=== PATIENT | male | born 1965 | race Caucasian/White ===

== ENCOUNTER 2017-01-16 18:16 | Emergency (ER) | payer BC ==
[2017-01-16 18:22] VITALS: BP 136/90
--- NOTE | 2017-01-16 19:32 | ER Document Report ---
ED General <PAM KEYES - Last Filed: 01/16/17 20:29> - General TRAVEL OUTSIDE OF THE [place] IN LAST 30 DAYS: No <REINA RIZZO - Last Filed: 01/16/17 21:48> - General Chief Complaint: Laceration Stated Complaint: TOE LACERATION Time Seen by Provider: 01/16/17 18:58 - HPI Notes: Patient is a 51-year-old male comes to the ED complaining of a toe laceration that occurred this evening. Patient states that he was stepping [place] old [place] fence and caught a spike between his fourth and fifth digits of his left foot. Patient went to an urgent care initially who sent him to the ED after he had wrapped it. Patient states that he has not been having any pain. Patient denies any loss of range of motion. He has not noticed any numbness or tingling. No other concerns or complaints. Denies any fever, headaches, chest pain, palpitations, shortness of breath, wheeze, cough, abdominal pain, nausea/ vomiting, muscle weakness. (REINA RIZZO) - Related Data Allergies/Adverse Reactions: Penicillins Allergy (Verified 01/16/17 18:22) Past Medical History - Social History Smoking Status: Current Every Day Smoker Chew tobacco use (# tins/day): No Frequency of alcohol use: None Drug Abuse: None Family History: Reviewed & Not Pertinent Patient has suicidal ideation: No Patient has homicidal ideation: No Renal/ Medical History: Denies: Hx Peritoneal Dialysis <REINA RIZZO - Last Filed: 01/16/17 21:48> Review of Systems <PAM KEYES - Last Filed: 01/16/17 20:29> <REINA RIZZO - Last Filed: 01/16/17 21:48> - Review of Systems Notes: REVIEW OF SYSTEMS: CONSTITUTIONAL : Denies fever, chills, or sweats. Denies recent illness. CARDIOVASCULAR: Denies chest pain. Denies palpitations or racing or irregular heart beat. Denies ankle edema. RESPIRATORY: Denies cough, cold, or chest congestion. Denies shortness of breath, difficulty breathing, or wheezing. GASTROINTESTINAL: Denies abdominal pain or distention. Denies nausea, vomiting , or diarrhea. Denies blood in vomitus, stools, or per rectum. Denies black, tarry stools. Denies constipation. GENITOURINARY: Denies difficulty urinating, painful urination, burning, frequency, blood in urine, or discharge. MUSCULOSKELETAL: see HPI SKIN: see HPI NEUROLOGICAL: Denies confusion or altered mental status. Denies passing out or loss of consciousness. Denies dizziness or lightheadedness. Denies headache. Denies weakness or paralysis or loss of use of either side. Denies problems with gait or speech. Denies sensory loss, numbness, or tingling. Denies seizures. PSYCHIATRIC: Denies anxiety or stress. Denies depression, suicidal ideation, or homicidal ideation. ALL OTHER SYSTEMS REVIEWED AND NEGATIVE. Dictation was performed using [employer] voice recognition software (REINA RIZZO) Physical Exam <PAM KEYES - Last Filed: 01/16/17 20:29> <REINA RIZZO - Last Filed: 01/16/17 21:48> - Vital signs Vitals: Temp Pulse Resp BP Pulse Ox 98.1 F 89 20 136/90 H 98 01/16/17 18:21 01/16/17 18:21 01/16/17 18:21 01/16/17 18:21 01/16/17 18:21 Notes: PHYSICAL EXAMINATION: GENERAL: Well-appearing, well-nourished and in no acute distress. HEAD: Atraumatic, normocephalic. NECK: Normal range of motion, supple without lymphadenopathy LUNGS: Breath sounds clear to auscultation bilaterally and equal. No wheezes rales or rhonchi. HEART: Regular rate and rhythm without murmurs, rubs, gallops. Musculoskeletal: Left foot/toes: FROM to passive/active. Strength 5+/5. No ligamentous/tendinous compromise s/p injury. + mild tenderness to palp of the wound. Neurovascularly intact distal. Extremities: No cyanosis, clubbing, or edema b/l. Peripheral pulses 2+. Capillary refill less than 3 seconds. NEUROLOGICAL: Normal sensory, motor exams PSYCH: Normal mood, normal affect. SKIN: + Approx 3 cm irregular and deep laceration noted b/w the 4th and 5th digits. (REINA RIZZO) Course <PAM KEYES - Last Filed: 01/16/17 20:29> <REINA RIZZO - Last Filed: 01/16/17 21:48> - Re-evaluation Re-evalutation: 01/16/17 21:46 Patient is afebrile, well-hydrated, 51-year-old male presents the ED with a toe/ foot laceration, left side. Vitals are stable. PE otherwise unremarkable for any other systemic infection, or any tendon/ligamentous/nerve compromise. Reviewed case with Dr. Keyes who performed internal and superficial sutures successfully without complication. Wound instructions reviewed with patient. I will send him home with doxycycline twice a day for 1 week prophylactic. Tdap given today. Conservative measures for symptoms otherwise. Recheck with us PCM in 2-3 days. Return to the ED with any worsening/concerning symptoms as needed otherwise. Patient is in agreement. Sutures will need removed in 10-14 days. (REINA RIZZO) - Vital Signs Vital signs: Temp Pulse Resp BP Pulse Ox 98.1 F 89 20 136/90 H 98 01/16/17 18:21 01/16/17 18:21 01/16/17 18:21 01/16/17 18:21 01/16/17 18:21 Procedures - Laceration/Wound Repair Left 5th digit Time completed: 20:29 Wound length (cm): 3 Wound's Depth, Shape: Into muscle, Linear Laceration pre-procedure: Sterile PPE donned, Sterile drapes applied, Shur- Clens applied Anesthetic type: 1% Lidocaine Volume Anesthetic (mLs): 5 Wound explored: Clean Wound Debrided: Minimal Wound Repaired With: Sutures Suture Size/Type: 5:0, Prolene Number of Sutures: 6 Layer Closure?: Yes Deep Layer Suture Size/Type: 5:0, Gut Number Deep Layer Sutures: 3 Post-procedure wound care: Sterile dressing applied Post-procedure NV exam normal: Yes Complications: No <PAM KEYES - Last Filed: 01/16/17 20:29> Discharge <PAM KEYES - Last Filed: 01/16/17 20:29> <REINA RIZZO - Last Filed: 01/16/17 21:48> - Discharge Clinical Impression: Toe laceration Qualifiers: Encounter type: initial encounter Toe: unspecified toe Damage to nail status: without damage Foreign body presence: without foreign body Laterality: left Qualified Code(s): S91.119A - Laceration without foreign body of unspecified toe without damage to nail, initial encounter Condition: Stable Disposition: HOME, SELF-CARE Instructions: Antibiotic Ointment Protection ([facility]), Soap Cleansing ([facility]), Tetanus Immunization Given ([facility]), Laceration Care ([facility]), Prophylactic Antibiotic ([facility]) Additional Instructions: Do not shower or bathe for 24 hours. After 24 hours you may shower but no submersion of the wound under water. Keep the original dressing on the wound for 24 hours unless the drainage soaks through. Change the dressing daily thereafter and keep the knots of the suture material clean from any dried discharge. You may leave the wound open to the air once there is no more discharge. Return to the ED and/or your PCM in 2-3 days for a recheck. Monitor for any signs of worsening pain or redness, purulent drainage, streaks, and/or fever. Return to the ED if noticing any of the above symptoms or as needed. Take medications as directed. Your sutures will need to be removed in 10-14 days. Prescriptions: Doxycycline Hyclate 100 mg PO BID #14 capsule Forms: Elevated Blood Pressure Referrals: LUIS ALBERTO WILLIAMSON FNP [Primary Care Provider] - Follow up as needed
[2017-01-16] MEDS ORDERED: LIDOCAINE 1% INJ-PF (10 MG/ML) 30 ML SDV INJ ONE ×2 (19:56)
[2017-01-16] MEDS ORDERED: DIPH/PERTUSS(ACELL)/TETANUS VAC/PF 0.5 ML SYR (>=10YO) IM ONE (20:29)
== END 2017-01-16 20:46 | disposition home or self-care (01) ==
LOC: ER 18:16
DX: S91.115A Laceration without foreign body of left lesser toe(s) without damage to nail, initial encounter (principal); W26.8XXA Contact with other sharp object(s), not elsewhere classified, initial encounter; Y93.89 Activity, other specified; Y92.89 Other specified places as the place of occurrence of the external cause; F17.200 Nicotine dependence, unspecified, uncomplicated; Z23 Encounter for immunization; Z88.0 Allergy status to penicillin
CPT/HCPCS: 12032; 99282; 90471; 90715; J3490